=== PATIENT | male | born 1965 | race Asian ===

== ENCOUNTER 2016-12-21 05:01 | Inpatient (IN) | payer OTHER ==
[2016-12-04 13:12] VITALS: BMI 31.5
[~2016-12-21 05:01] MED LIST: BACITRACIN 15 GM TUBE TOPICAL OINTMENT TP ONE; BUPIVACAINE HCL/PF 0.5% (5MG/ML) 10 ML VIAL IJ ONE
[2016-12-21] MEDS ORDERED: CEFAZOLIN 2 GM in DEXTROSE 5%-WATER - 100 ML IVPB ONE (07:31)
--- NOTE | 2016-12-21 07:31 | HP ---
History & Physical Update - History History: No Change - Physical Physical: No Change - Assessment Assessment: No Change - Plan Plan: No Change (full H&P in chart from 12/16/2106)
[2016-12-21] MEDS ORDERED: PROPOFOL 20 ML ONE ×17 (08:02→12:58)
[2016-12-21] MEDS ORDERED: ROCURONIUM BROMIDE 50 MG/5 ML VIAL ONE (08:02)
[2016-12-21] MEDS ORDERED: MIDAZOLAM HCL 2 MG/2 ML SINGLE DOSE VIAL ONE ×2 (08:02)
[2016-12-21] MEDS ORDERED: SUCCINYLCHOLINE CHLORIDE 200 MG/10 ML VIAL ONE (08:02)
[2016-12-21] MEDS ORDERED: ceFAZolin SODIUM 1 GM VIAL IVPB ONE (08:19)
[2016-12-21] MEDS ORDERED: BACITRACIN 15 GM TUBE TOPICAL OINTMENT ONE (08:47)
[2016-12-21] MEDS ORDERED: BUPIVACAINE HCL/PF 0.5% (5MG/ML) 10 ML VIAL ONE (08:47)
[2016-12-21] MEDS ORDERED: BACITRACIN 50,000 UNITS VIAL TP ONE ×2 (09:03→11:50)
[2016-12-21] MEDS ORDERED: THROMBIN (BOVINE) 5,000 UNIT VIAL TP ONE ×2 (09:03→12:21)
[2016-12-21] MEDS ORDERED: ePHEDrine SULFATE 50 MG/1 ML AMPULE ONE (09:52)
--- NOTE | 2016-12-21 13:58 | OP ---
Operative Note - Note: Operative Date: 12/21/16 Pre-Operative Diagnosis: L3-4 DDD, stenosis, spondylolisthesis, instability; end -of -life SCS Operation: Revision of SCS generator ([employer]); Redo and expansion of B L5, L4, and new B L3 laminectomies, bone graft harvest, discectomy L3-4, take- down of L4-5 posterolateral fusion; removal of prior implants L4-5; PLIF L3-4, posterolateral fusion L3-4 and L4-5; revision of L L4 screw and new B L3 screws ; new B 60 mm rods; locking screws; fluoroscopy Findings: Dense epidural fibrosis; L3-4 instability and stenosis; sensitive B lumbar roots L3,4,5 Implants: Appoet Legacy system; 6.5x30 mm R L3 cortical screw and L L4 45 mm pedicel screw and new L L4 6.5 x40mm pedicle screw; 60mm rods x2; locking screws; B 12 x 26 mm Hanna interbody implants Surgeon: Porfirio Carvajla Auto Wash Buffer: Gloria Donald Anesthesiologist/DATA MANAGEMENT CONSULTANT: Kinsey Verdugo MD Specimens Removed: L3-4 synovial cyst and L3-4 disc Estimated Blood Loss (mls): 300 Drains & Tubes with Location: PATRICIA to blub
[2016-12-21] MEDS ORDERED: BISACODYL 10 MG SUPP.RECT RC PRN (14:03)
[2016-12-21] MEDS ORDERED: ONDANSETRON 4 MG/2 ML VIAL IVPB PRN (14:03)
[2016-12-21] MEDS ORDERED: D5-1/2NS+20 MEQ KCL - 1,000 ML IV SCH (14:15)
[2016-12-21] MEDS ORDERED: diazePAM 5 MG TABLET PO SCH (14:15)
[2016-12-21] MEDS ORDERED: HYDROmorphone *PCA* 10MG/50ML DISP.SYRIN PCA ONE (14:25)
[2016-12-21] MEDS: HYDROmorphone HCL CARPU-JECT 2 MG/1 ML DISP.SYRIN ONE ×4 (14:30→14:50)
[2016-12-21] MEDS ORDERED: PROMETHAZINE HCL 25 MG/1 ML VIAL IVPB PRN (14:31)
[2016-12-21] MEDS ORDERED: DEXAMETHASONE SOD PHOSPHATE 4 MG/1 ML VIAL IVPUSH PRN (14:31)
[2016-12-21] MEDS ORDERED: ONDANSETRON 4 MG/2 ML VIAL IVPUSH PRN (14:31)
--- NOTE | 2016-12-21 14:57 | PN ---
Progress Note (short form) - Note Progress Note: NEUROSURGERY In PACU AF, VSS Still drowsy PE: CV- RRR; Lungs- CTA; Abd- benign, Ext- No C/C/E Motor- moving B LE at least 4-/5; Sensation- intact LT Labs pending IRB COMPLIANCE COORDINATOR for pain Valium for muscle relaxation Findings d/w and father LSO brace when OOB
--- NOTE | 2016-12-21 15:20 | SURG ---
Surgery Manager Combination Note Manager Combination: Gloria Donald PA-C Date of Service: 12/21/16 Diagnosis: L3-4 DDD, stenosis, spondylolisthesis, instability; end-of -life SCS Procedure: Revision of SCS generator ([email or web address]); Redo and expansion of B L5, L4, and new B L3 laminectomies, bone graft harvest, discectomy L3-4, take-down of L4 -5 posterolateral fusion; removal of prior implants L4-5; PLIF L3-4, posterolateral fusion L3-4 and L4-5; revision of L L4 screw and new B L3 screws ; new B 60 mm rods; locking screws; fluoroscopy I was present for the entirety of the operative procedure. For further detail, please refer to operative report. Visit type - Case Type Case Type: Scheduled Admission - Emergency Emergency Visit: No - New patient This patient is new to me today: Yes Date on this admission: 12/21/16 - Critical Care Critical Care patient: No
[2016-12-21 15:53] LABS: MCH 29.6 pg (25.7-33.7); MCHC 34.3 g/dl (32.0-35.9); MEAN CELL VOLUME 86.3 fl (80-96); MEAN PLT VOLUME 8.4 fl (7.5-11.1); PLATELET COUNT 211 K/MM3 (134-434); RDW 13.4 % (11.9-15.9); WHITE BLOOD COUNT 8.3 K/mm3 (4.0-10.0)
[2016-12-21] MEDS: D5-1/2NS+20 MEQ KCL - 1,000 ML IV SCH ×2 (15:58→23:05)
[2016-12-21 16:22] LABS: ANION GAP 8 (8-16); CALCIUM 8.3 mg/dL (8.5-10.1); CO2 27 mmol/L (21-32); CREATININE 1.3 mg/dL (0.7-1.3); GLUCOSE,RANDOM 142 mg/dL (74-106)
[2016-12-21] MEDS: HYDROmorphone *PCA* 10MG/50ML DISP.SYRIN PCA SCH (17:02)
[2016-12-21] MEDS: LACTATED RINGERS SOLUTION 1,000 ML IV SCH (17:03)
[2016-12-21] MEDS: HYDROmorphone HCL CARPU-JECT 1 MG/1 ML DISP.SYRIN IVPUSH SCH (17:04)
[2016-12-21] MEDS ORDERED: CEFAZOLIN 1 GM/D5W 50 ML IVPB SCH (18:00)
[2016-12-21] MEDS ORDERED: ceFAZolin SODIUM 1 GM VIAL ONE (18:10)
[2016-12-21] MEDS ORDERED: DEXTROSE 5%-WATER - 50 ML IVPB ONE (18:10)
[2016-12-21] MEDS: CEFAZOLIN 1 GM in DEXTROSE 5%-WATER - 50 ML IVPB SCH (18:16)
[2016-12-21] MEDS ORDERED: NORTRIPTYLINE HCL 50 MG CAPSULE PO SCH (22:00)
[2016-12-21] MEDS: diazePAM 5 MG TABLET PO SCH (22:07)
[2016-12-21] MEDS: GABAPENTIN 300 MG CAPSULE (FP) PO SCH (22:07)
[2016-12-21] MEDS: DOCUSATE SODIUM 100 MG CAPSULE (FP) PO SCH (22:07)
[2016-12-21] MEDS: ATORVASTATIN CA 10 MG TABLET (FP) PO SCH (22:08)
[2016-12-21] MEDS ORDERED: PT OWN MED DRAWER 7, Y5N ONE (22:09)
[2016-12-21] MEDS ORDERED: NORTRIPTYLINE HCL 25 MG CAPSULE PO SCH ×2 (22:14→22:30)
[2016-12-22] MEDS ORDERED: ceFAZolin SODIUM 1 GM VIAL ONE ×3 (01:20→19:09)
[2016-12-22] MEDS ORDERED: DEXTROSE 5%-WATER - 50 ML IVPB ONE ×3 (01:20→19:09)
[2016-12-22] MEDS: CEFAZOLIN 1 GM in DEXTROSE 5%-WATER - 50 ML IVPB SCH ×2 (01:30→10:10)
[2016-12-22] MEDS: DOCUSATE SODIUM 100 MG CAPSULE (FP) PO SCH ×3 (05:12→21:09)
[2016-12-22] MEDS: diazePAM 5 MG TABLET PO SCH ×3 (05:12→21:08)
[2016-12-22] MEDS: GABAPENTIN 300 MG CAPSULE (FP) PO SCH ×3 (05:12→21:09)
--- NOTE | 2016-12-22 08:07 | PN ---
Progress Note (short form) - Note Progress Note: NEUROSURGERY POD #1 Incisional pain According to , pt is thrashing around in bed Tmax 100, , VSS Drain 95 cc Still drowsy PE: CV- RRR; Lungs- CTA; Abd- benign, Ext- No C/C/E Motor- moving B LE at least 4-/5; Sensation- intact LT Slight drainage on bottom of incision WBC 8.3, Hgb 11.9. Cr 1.3 PATTERN FILER for pain IVF hydration, PO hydration Valium for muscle relaxation Bedrest today Advised pt not to overtly exert himself as tissues are redo surgery are weaker and prone to reinjury Incentive spirometry Plan d/c gilbert and drain tomorrow
[2016-12-22] MEDS ORDERED: PT OWN MED DRAWER 7, Y5N ONE (09:53)
[2016-12-22] MEDS: FLUoxetine HCL 20 MG CAPSULE (FP) PO SCH (10:11)
[2016-12-22] MEDS: ATENOLOL 50 MG TABLET (FP) PO SCH (10:11)
[2016-12-22] MEDS ORDERED: HYDROmorphone *PCA* 10MG/50ML DISP.SYRIN PCA ONE (13:32)
--- NOTE | 2016-12-22 13:41 | PN ---
Progress Note (short form) - Note Progress Note: Anesthesia postop note 51 y/o M, s/p GA for revision of spinal cord stimulator, revision and extension of lumbar fusion, sourcing coordinator for postop pain management POD#1, vss, aaox3, pain well controlled on iv sourcing coordinator Will continue sourcing coordinator today. No anesthesia complications.
--- NOTE | 2016-12-22 14:19 | OP ---
DATE OF OPERATION: 12/21/2016 -) PREOPERATIVE DIAGNOSES: 1. Prior L4-5 fusion. 2. L3-4 spondylolisthesis with stenosis and instability. 3. End-of-life spinal cord stimulator generator. 4. Hypertension. POSTOPERATIVE DIAGNOSES: 1. Prior L4-5 fusion. 2. L3-4 spondylolisthesis with stenosis and instability. 3. End-of-life spinal cord stimulator generator. 4. Hypertension. ATTENDING SURGEON: Porfirio Carvajal MD LABOR MEDIATOR: ANUP Wadr ANESTHESIA: General endotracheal. ANESTHESIOLOGIST: Kinsey Verdugo MD ESTIMATED BLOOD LOSS: 300 mL PROCEDURE: 1. Replacement of spinal cord stimulator generator in left buttock. (96094) 2. Intra-operative programming first hour (44876-05) 2. Intraoperative fluoroscopy for localization, lead position verification, and pedicle screw placement (23267-05). 3. Exploration and expansion of prior laminectomies at L4 and L5 bilaterally and new laminectomies at L3 for decompression of thecal sac as well as bilateral L5, L4 , and L3 nerve roots (89591-26-94, 58975-12, and 36164-27). 4. Microsurgical dissection with the operating microscope and microsurgical techniques (78090). 5. Lysis of epidural adhesions. 6. Bilateral L3-4 diskectomy. 7. Bilateral posterior lumbar interbody fusion, L3-4 (52483). 8. [place] of autologous lamina and spinous process and facet bone for interbody and posterolateral fusion (68825). 9. Removal of pedicle screw system including bilateral locking and nonlocking screws, and old left L4 screws (54284). 10. New screw placement at bilateral L3 and new screws at left L4, as well as bilateral 60-mm rods and locking screws (89981-22). 11. Posterior lumbar interbody fusion, L3-4 (30140). 12. Posterolateral fusion, L3-4 and L4-5 (43462, 46108). FINDINGS: 1. Dense epidural fibrosis. 2. L3-4 instability. 3. Marked lateral recess stenosis, L3-4 with thecal sac and root impingement. 4. Extremely thinned-out dura under chronic compression. INDICATIONS: The patient is a 51-year-old male with prior history of L4-5 laminectomy and fusion. He had previously undergone lumbar fusion and with some recurrent symptoms. CT scan had demonstrated worsening stenosis at L3-4, spinal listhesis, and degenerative disk disease. He was also found to have a generator of spinal cord stimulator that no longer works. He is, therefore, scheduled for a spinal cord stimulator revision and extension of the fusion up to L3-4 with revision of fusion of L4-5 as well. Risks for the procedure include, but are not limited to, bleeding, infection, dural tear with CSF leak, neurological injury, increased thromboembolic risks, and other risks of general anesthesia. The patient understands the indication for the procedure. Procedure in detail, risks and benefits, and alternative treatment of his lumbar condition and wished to proceed. No guarantees were given for a favorable outcome. Intraoperative SSEP and EMG signals were monitored. PROCEDURE IN DETAIL: After the patient was taken to the operating room, he was placed in supine position. After general anesthesia was induced and appropriate monitoring lines were placed, a Romero catheter was inserted. The patient was then turned over in the prone position on the Shyam frame. All pressure points were checked and padded. O2 saturation of bilateral lower extremities was 100%. Lumbar region as well as left buttock and posterior thoracic region were cleaned with alcohol and prepped with Betadine. Fluoroscope was brought in for localization. The operative field was sterilely draped. The first incision opened was left buttock incision. The tip of the epidural paddle electrode was at about mid-T9 body. After the left buttock incision was opened, the generator box was skeletonized. It was removed and disconnected from the epidural electrode. The impedance was checked for all 16 contact points, and they were all less than 300-400 ohms. The new generator was then placed, with 2 new leads. The impedance was checked, and once again, were satisfactory. The torch wrench was used to secure the leads. After the left buttock pocket was enlarged slightly, and the generator was placed in the buttock pocket. It was irrigated with antibiotic irrigation prior to the implant being placed. The fascia was closed with 3-0 Vicryl suture, and the skin was closed with 4-0 Vicryl running in subcuticular suture. Attention was then turned to the prior incision in the lumbar spine. Prior to this, the fluoroscope showed unchanged position of the epidural paddle electrode at mid T9 on AP fluoroscopic imaging. The prior incision was opened, with approximately 1/2 inch cephalad extension. Subperiosteal dissection was carried out bilaterally with periosteal elevator and monopolar electrocautery. The bottom of the L2 lamina, bilateral L3 lamina, as well as the prior pedicle screw systems on L4 and L5 were skeletonized. Two self-retaining retractors were inserted. Dense paraspinal and epidural fibrosis was encountered. The nerve root was extensively sensitive to nearby cautery stimulation at this point. The facet joint of L2-3 was skeletonized and preserved as well as the L3-4 facet initially. The pedicle screw system was skeletonized with a combination of sharp and blunt dissection. At this point, bilateral L3 laminectomy was carried out after spinous process was removed with Leksell rongeur, a high-speed pneumatic drill, as well as Kerrison rongeur. The bilateral L3-4 facetectomy was carried out with high-speed pneumatic drill and Leksell rongeur. The bone graft and bone dust were saved to be used later on. Microsurgical dissection was carried out with microscope for illumination and magnification. Microsurgical techniques were utilized. The wound was intermittently irrigated with antibiotic and irrigation. Dense epidural and paraspinal fibrosis was noted at L4-5 > L3 levels, and meticulous dissection was carried out. The dura was extremely raw because of the epidural scar tissue. Lysis of the epidural adhesions was carried out bilaterally at L4 and L5 in addition to the new laminectomy level at L3. This was to decompress the thecal sac and the bilateral L3, L4, and L5 nerve roots. After decompression was completed, under gentle retraction of the left L4 nerve root, disk annulus was incised with No. 15 blade. Disk space was cleaned with serially larger disk space scraper up to 12 mm. A 13-mm distractor was placed on the left side. Attention was then turned to the right side epidural space where disk annulus was incised with a No. 15 blade, and the disk spaces were cleaned with serially larger disk space scraper from 8 to 12 mm. The disk material was removed. A 12 x 26 mm tangent bony prosthetic device was burred down slightly anteriorly and countersunk by about 3-4 mm. Interbody fusion was achieved with the interbody devices bilaterally with good endplate contact. Central portion of the disc space was packed with autologous bone graft and bone dust. The attention was then turned to the left side where the disk space was similarly prepared. The central portion of the disk space was packed with autologous morselized bone graft and bone dust for interbody fusion. Another 12 x 26 mm interbody implant was placed on the left side similarly. At this point, the fluoroscope was moved in after microscope was moved out of the way, and fluoroscope was brought into the lateral position. Entry point and pedicle screw at L3 were marked with high-speed pneumatic drill. In order to hold our trajectory of the prior pedicle screw system, a 30-mm cortical screw was placed on the right side, and a 45-mm pedicle screw was placed on the left side. This was done with lateral fluoroscopic imaging. At this point, the locking screws at L4 and L5 pedicles were removed, and the left-sided L4 pedicle screw was removed. It was deemed somewhat more lateral on preoperative CT scan. A more medial trajectory of the pedicle screw was made with about 10-degree medial angle and a 5.5 x 40 mm screw was used at left L4. The EMG threshold was 20 mA for bilateral L3 screw with 200 mA stimulation, and it was 19 milliamps threshold for the left L4 pedicle screw with 200 mA stimulation similarly. Next, 16-mm rods were then loaded on top of the screws and locked down with locking screws. Torque wrench and counter-torque wrench were used for final tightening. The screws at L3 and L4 were compressed prior to final tightening. Good position was shown on lateral and AP fluoroscopic imaging. At this point, the posterolateral surface of the spine was decorticated with high-speed pneumatic drill. This facilitated the rods' removal bilaterally at L4-5. Posterolateral fusion was taken down. Previously morselized bone graft and bone dust were placed in the posterolateral surfaces of the spine at L3-4 and L4-5 for the fusion at these 2 levels. Since the dura was very raw, it was decided to leave a thin layer of DuraSeal was injected after copious amount of antibiotic-containing irrigation was given. The dorsal lumbar musculature was then approximated with 0 Vicryl suture. A number 10 flat PATRICIA drain was laid in the epidural space and came out through a separate right sided stab incision. The dorsal lumbar fascia was closed with 0 Vicryl suture, and the subcutaneous fascia was closed with 3-0 Vicryl sutures. Skin was closed with 4-0 Vicryl running subcuticular suture. Steri-Strips and sterile glue dressing were applied. The patient tolerated the procedure well and was turned back to the supine position and extubated. The PATRICIA drain was connected to a suction bulb. All needle and lap counts were correct. SSEP and EMG signals remained stable throughout. The OR timeout procedure was followed. The patient received 1 dose of 2 g of Ancef prior to incision. The patient was moving upper and lower extremities, as he did preoperatively. Amberly [id number] MTDD
[2016-12-22] MEDS: D5-1/2NS+20 MEQ KCL - 1,000 ML IV SCH ×2 (14:39→23:24)
[2016-12-22] MEDS: HYDROmorphone *PCA* 10MG/50ML DISP.SYRIN PCA SCH (15:33)
[2016-12-22] MEDS: LACTATED RINGERS SOLUTION 1,000 ML IV SCH (15:34)
[2016-12-22] MEDS: ACETAMINOPHEN 325 MG TABLET (FP) PO PRN ×2 (17:30→23:22)
[2016-12-22] MEDS ORDERED: CEFAZOLIN 1 GM in DEXTROSE 5%-WATER - 50 ML IVPB ONE (18:30)
[2016-12-22] MEDS: HYDROmorphone HCL CARPU-JECT 1 MG/1 ML DISP.SYRIN IVPUSH SCH (18:51)
--- NOTE | 2016-12-22 19:39 | PN ---
Progress Note (short form) - Note Progress Note: NEUROSURGERY POD #1 Incisional pain According to , pt is thrashing around in bed Reported with T of 103, VSS, given tylenol Got jup earlier x2 when confused, RELIGIOUS ASSISTANT held Using a lot of RELIGIOUS ASSISTANT Drain 170 cc+ Fully awake and alert PE: CV- RRR; Lungs- CTA, decreased BS at bases; Abd- benign, Ext- No C/C/E Motor- moving B LE at least 4-/5; Sensation- intact LT Mild drainage near bottom of incision/drain site- dressing changed Nucynta IVF hydration, PO hydration Renewed Ancef for now given temp Valium for muscle relaxation Bedrest for now Advised pt not to overtly exert himself as tissues are weaker and prone to reinjury Encouarged incentive spirometry again Change pain meds to Nucynta and dilaudid PRN and family at bedside
[2016-12-22] MEDS ORDERED: HYDROmorphone HCL CARPU-JECT 1 MG/1 ML DISP.SYRIN IVPB PRN (19:40)
[2016-12-22] MEDS: ATORVASTATIN CA 10 MG TABLET (FP) PO SCH (21:09)
[2016-12-23] MEDS: TAPENTADOL HYDROCHLORIDE 50 MG TABLET PO SCH ×4 (00:08→17:50)
[2016-12-23] MEDS ORDERED: ceFAZolin SODIUM 1 GM VIAL ONE ×3 (00:29→17:45)
[2016-12-23] MEDS ORDERED: DEXTROSE 5%-WATER - 50 ML IVPB ONE ×3 (00:29→17:45)
[2016-12-23] MEDS: CEFAZOLIN 1 GM in DEXTROSE 5%-WATER - 50 ML IVPB SCH ×3 (01:08→17:51)
[2016-12-23] MEDS ORDERED: CEFAZOLIN 1 GM in DEXTROSE 5%-WATER - 50 ML IVPB SCH (02:00)
[2016-12-23] MEDS: DOCUSATE SODIUM 100 MG CAPSULE (FP) PO SCH ×3 (06:06→21:40)
[2016-12-23] MEDS: GABAPENTIN 300 MG CAPSULE (FP) PO SCH ×3 (06:06→21:40)
[2016-12-23] MEDS: diazePAM 5 MG TABLET PO SCH ×3 (06:06→23:09)
--- NOTE | 2016-12-23 08:16 | PN ---
Progress Note (short form) - Note Progress Note: NEUROSURGERY POD #2 Incisional pain controlled with with Nucynta Tolerating diet at bedside Tmax 101.5 now 99.7, VSS Drain output 140 cc+ (bulb changed) Awake and alert PE: CV- RRR; Lungs- BS better; Abd- benign, +BS; Ext- No C/C/E Motor- moving B LE 4+-5/5; Sensation- intact LT Dressing of incisions/drain site dry/clean IVF hydration, PO hydration Renewed Ancef given temp earlier and drain still in place Valium for muscle relaxation Bedrest for now; SCD's Encouraged LE/foot ROM exercises and incentive spirometry On Nucynta standing (hold for drowsiness) and dilaudid PRN Cont bowel regimen Hold drain removal till tomorrow Baseline medical eval, consult Dr Quarles
[2016-12-23] MEDS ORDERED: PT OWN MED DRAWER 7, Y5N ONE ×2 (10:19→21:43)
[2016-12-23] MEDS: FLUoxetine HCL 20 MG CAPSULE (FP) PO SCH (10:25)
[2016-12-23] MEDS: ATENOLOL 50 MG TABLET (FP) PO SCH (10:26)
--- NOTE | 2016-12-23 10:28 | CONSULT ---
Consult Consult Specialty:: medicine Referred by:: mayank perera Reason for Consultation:: baseline medical consultation - History of Present Illness Chief Complaint: s/p spine surgery, h/o HTN, high cholesterol. s/p fever x 1 postop History of Present Illness: 51 y/o M, h/o HTN high cholesterol, s/p previous back surgeries x3 and spinal cord stimulator, now s/p revision of spinal cord stimulator, revision and extension of lumbar fusion, on technical support director for postop pain management POD#2, had fever 103 last evening but afebrile today aox3, pain controlled on iv technical support director meds, chart, consult, labs, tests and events noted - History Source History Provided By: Patient, Medical Record Limitations to Obtaining History: No Limitations - Past Medical History Cardio/Vascular: Yes: HTN, Hyperlipdemia Musculoskeletal: Yes: Chronic low back pain, Other - Alcohol/Substance Use Hx Alcohol Use: No - Smoking History Smoking history: Current every day smoker Have you smoked in the past 12 months: Yes Aproximately how many cigarettes per day: 10 - Social History Usual Living Arrangement: With Child ADL: Independent History of Recent Travel: No Home Medications - Allergies Allergies/Adverse Reactions: Allergies Allergy/AdvReac Type Severity Reaction Status Date / Time No Known Drug Allergies Allergy Verified 12/04/16 13:16 - Home Medications Home Medications: Ambulatory Orders Fluoxetine HCl [Prozac] 20 mg PO DAILY #0 capsule 02/21/13 Lidocaine 5% Patch [Lidoderm -] 1 patch TP DAILY #0 patch 02/21/13 Atenolol [Tenormin -] 50 mg PO DAILY 12/04/16 CeleBREX - 400 mg PO DAILY 12/04/16 Gabapentin 300 mg PO HS 12/04/16 Gabapentin 600 mg PO DAILY 12/04/16 Garlic 1 tablet PO DAILY 12/04/16 Pamelor - 50 mg PO HS 12/04/16 Simvastatin [Zocor -] 20 mg PO DAILY 12/04/16 Tizanidine HCl 4 mg PO PRN PRN 12/04/16 Family Disease History - Family Disease History Family History: Unremarkable Review of Systems - Review of Systems Constitutional: reports: Fever. denies: Chills, Lethargy Eyes: denies: Blind Spots, Blurred Vision, Double Vision HENT: denies: Difficult Swallowing, Epistaxis Neck: denies: Pain on Movement, Stiffness, Tenderness Cardiovascular: denies: Chest Pain, Shortness of Breath Respiratory: denies: Cough, SOB Gastrointestinal: denies: Abdominal Pain, Constipation, Diarrhea, Vomiting Genitourinary: denies: Discharge, Dysuria, Flank Pain Musculoskeletal: reports: Back Pain. denies: Extremity Pain, Joint Swelling, Muscle Weakness Integumentary: denies: Eczema, Pruritis, Rash Neurological: denies: Change in LOC, Change in Speech, Confusion, Dizziness, Headache, Syncope Hematology/Lymphatic: denies: Easily Bruised, Excessive Bleeding Psychiatric: denies: Altered Sleep Pattern, Anxiety, Depression, Suicidal Physical Exam Vital Signs: Vital Signs Temperature 99.2 F 12/23/16 06:20 Pulse Rate 88 12/23/16 06:20 Respiratory Rate 20 12/23/16 06:20 Blood Pressure 134/84 12/23/16 06:20 O2 Sat by Pulse Oximetry (%) 97 12/22/16 21:00 Constitutional: Yes: No Distress, Calm Eyes: Yes: Conjunctiva Clear HENT: Yes: Atraumatic Neck: Yes: Supple Cardiovascular: Yes: Regular Rate and Rhythm Respiratory: Yes: CTA Bilaterally Gastrointestinal: Yes: Soft. No: Distention, Tenderness Renal/: No: Hematuria Musculoskeletal: No: Joint Stiffness, Joint Swelling Extremities: Yes: Other (SCDs to legs bilateral). No: Cold, Cool, Cyanosis Edema: No Integumentary: No: Pressure Ulcer, Rash, Venous Stasis Changes Neurological: Yes: WNL, Alert, Oriented ...Motor Strength: WNL Psychiatric: Yes: WNL, Alert, Oriented. No: Agitated, Suicidal Ideation Labs: CBC, BMP 12/21/16 15:00 12/21/16 15:00 Imaging - Results X-ray: Report Reviewed Other: Report Reviewed Assessment/Plan 51 y/o M, h/o HTN, high cholesterol, s/p 2 spine surgeries in the past and a spinal cord stimulator 10 years ago, now s/p revision of spinal cord stimulator , revision and extension of lumbar fusion, technical support director for postop pain management BP controlled pain control MUSEUM SPECIALIST fever w/u CXR, cultures sent IV ATB as ordered DVT PFX per neurosurgery OOB PT per NS falls pfx advised stop smoking stop etoh (drinks tequila sometimes and smoked until 1 week preop) f/u with PCP in 1 - 2 weeks after DC d/w pt and staff
--- NOTE | 2016-12-23 11:50 | PN ---
Progress Note (short form) - Note Progress Note: Anesthesia HUMAN RESOURCES OFFICER follow up, S/P lumbar interbody fusion, POD#2. Pat seen and examined. VSS, resting in bed. HUMAN RESOURCES OFFICER d/c'd by Dr. BRADSHAW. Pain controlled on PO analgetics. Signed off.
[2016-12-23] MEDS: D5-1/2NS+20 MEQ KCL - 1,000 ML IV SCH (14:20)
--- NOTE | 2016-12-23 16:01 | PN ---
Progress Note (short form) - Note Progress Note: NEUROSURGERY F/U POD #[address] Quarles's input Drain output 275 cc Romero out earlier Resting comfortably Tmax 99.2, VSS PE: CV- RRR; Lungs- BS better; Abd- benign, +BS; Ext- No C/C/E Motor- moving B LE 4+-5/5; Sensation- intact LT Dressing of incisions/drain site dry/clean IVF hydration, PO hydration Renewed Ancef given temp earlier and drain still in place Valium for muscle relaxation Bedrest for now; SCD's Encouraged LE/foot ROM exercises and incentive spirometry On Nucynta standing (hold for drowsiness) and dilaudid PRN D/C drain tomorrow AM
[2016-12-23 16:02] LABS: URINE APPEARANCE CLEAR; URINE BILIRUBIN NEGATIVE (NEGATIVE); URINE BLOOD 1+ (NEGATIVE); URINE COLOR YELLOW; URINE GLUCOSE (UA) 2+ (NEGATIVE); URINE KETONE NEGATIVE (NEGATIVE); URINE LEUK ESTERASE NEGATIVE (NEGATIVE); URINE NITRITE NEGATIVE (NEGATIVE); URINE UROBILINOGEN NEGATIVE mg/dL (0.2-1.0)
[2016-12-23 16:32] LABS: URINE PROTEIN 1+ (NEGATIVE)
[2016-12-23 18:38] LABS: URINE MUCUS RARE; URINE RBC 4 /hpf (0-3); URINE WBC 1 /hpf (3-5)
[2016-12-23] MEDS: ATORVASTATIN CA 10 MG TABLET (FP) PO SCH (21:40)
[2016-12-24] MEDS ORDERED: ceFAZolin SODIUM 1 GM VIAL ONE ×2 (01:34→09:24)
[2016-12-24] MEDS ORDERED: DEXTROSE 5%-WATER - 50 ML IVPB ONE ×2 (01:35→09:24)
[2016-12-24] MEDS: CEFAZOLIN 1 GM in DEXTROSE 5%-WATER - 50 ML IVPB SCH ×2 (01:43→09:29)
[2016-12-24] MEDS: D5-1/2NS+20 MEQ KCL - 1,000 ML IV SCH (03:46)
[2016-12-24] MEDS: diazePAM 5 MG TABLET PO SCH ×3 (05:23→21:10)
[2016-12-24] MEDS: DOCUSATE SODIUM 100 MG CAPSULE (FP) PO SCH ×3 (05:23→21:10)
[2016-12-24] MEDS: TAPENTADOL HYDROCHLORIDE 50 MG TABLET PO SCH ×4 (05:23→17:51)
[2016-12-24] MEDS: GABAPENTIN 300 MG CAPSULE (FP) PO SCH ×3 (05:24→21:10)
--- NOTE | 2016-12-24 06:44 | PN ---
Progress Note (short form) - Note Progress Note: NEUROSURGERY F/U POD #3 Some incisional pain Drain output 135 cc Resting comfortably Tmax 100.4, VSS PE: CV- RRR; Lungs- BS better; Abd- benign, +BS; Ext- No C/C/E Motor- moving B LE 4+-5/5; Sensation- intact LT Dressing of incisions/drain site dry/clean IVF hydration, PO hydration Renewed Ancef given temp and drain just removed Valium for muscle relaxation D/C drain Bedrest for now; SCD's Encouraged LE/foot ROM exercises and incentive spirometry On Nucynta standing (hold for drowsiness) and dilaudid PRN, working adequately Bowel regimen
[2016-12-24 07:49] LABS: BASOPHIL 0.3 % (0-2.0); MEAN CELL VOLUME 85.4 fl (80-96); MEAN PLT VOLUME 8.1 fl (7.5-11.1); NEUTROPHILS 60.5 % (42.8-82.8); PLATELET COUNT 179 K/MM3 (134-434); WHITE BLOOD COUNT 7.2 K/mm3 (4.0-10.0)
[2016-12-24 08:49] LABS: ALBUMIN 2.8 g/dl (3.4-5.0); ALK PHOS 49 U/L (45-117); ANION GAP 5 (8-16); BILIRUBIN,TOTAL 0.6 mg/dL (0.2-1.0); CALCIUM 8.4 mg/dL (8.5-10.1); CO2 30 mmol/L (21-32); CREATININE 0.8 mg/dL (0.7-1.3); GLUCOSE,RANDOM 113 mg/dL (74-106); SGOT/AST 27 U/L (15-37); SGPT/ALT 25 U/L (12-78)
--- NOTE | 2016-12-24 09:06 | PATH ---
Surgical Pathology Report Patient Name: JILL KLINE Med. Rec. #: [id number] /Age/Gender: 1965 (Age: 51) / M Account: [id number] Location: [facility] MED/SURG Taken: 12/21/2016 Received: 12/22/2016 Reported: 12/24/2016 Physicians: Porfirio Carvajal M.D. Specimen(s) Received A: SYNOVIAL CYST, L3-4 B: REMOVED BATTERY C: DISC, L3-4 D: REMOVED HARDWARE Clinical History L3-L4 spondylolisthesis, post laminectomy syndrome Final Diagnosis A. SOFT TISSUE, L3-4, EXCISION: FIBROTIC SYNOVIUM WITH AREA SUGGESTIVE OF SYNOVIAL CYST. B. LACER AND TIER, REMOVAL: BATTERY CONSISTENT WITH SPINAL CORD STIMULATOR BATTERY (GROSS ONLY). C. INTERVERTEBRAL DISC, L3-4, PARTIAL EXCISION: PORTIONS OF INTERVERTEBRAL DISC AND SMALL FRAGMENTS OF BONE. D. HARDWARE, REMOVAL: METALLIC RODS AND SCREWS CONSISTENT WITH ORTHOPEDIC HARDWARE (GROSS ONLY). Electronically Signed Yvan Bartlett M.D. Gross Description A. Received in formalin labeled "synovial cyst L3-4," are 2 alberto, irregular portions of soft tissue averaging 0.7 cm in greatest dimension, possibly consistent with cysts. The specimens are submitted in toto in one cassette. B. Received fresh labeled "removed battery," is a 5.5 x 4.5 x 1.0 cm loaiza metallic device, consistent with a battery. The specimen has the following inscription: "[employer] REF [id number]." No soft tissue is present. No sections are submitted, gross only. C. Received in formalin labeled "disc L3-4," is a 3.5 x 2.8 x 0.3 cm aggregate of alberto fragments of fibrocartilaginous tissue. A field sales representative portion is submitted in one cassette. D. Received fresh labeled "removed hardware," is a 5.8 cm in length loaiza metallic screw. Also received within the same container are 2 loaiza metallic rods averaging 3.5 cm in greatest dimension and 4 loaiza metallic smaller screws averaging 0.5 cm in length. No soft tissue is present. No sections are submitted, gross only. DL12/22/2016 saudi12/22/2016
[2016-12-24] MEDS ORDERED: PT OWN MED DRAWER 7, Y5N ONE (09:24)
[2016-12-24] MEDS: FLUoxetine HCL 20 MG CAPSULE (FP) PO SCH (09:29)
[2016-12-24] MEDS: ATENOLOL 50 MG TABLET (FP) PO SCH (09:29)
--- NOTE | 2016-12-24 15:10 | PN ---
Progress Note (short form) - Note Progress Note: NEUROSURGERY F/U POD #3 Some incisional pain Drain out Resting comfortably, was up earlier walking Able to void fine at bedside Tmax 100.4 now 98.2, VSS PE: CV- RRR; Lungs- BS better; Abd- benign, +BS; Ext- No C/C/E Motor- moving B LE 4+-5/5; Sensation- intact LT Dressing of incisions/drain site dry/clean exteriorly; interiorly with dollar size serosangrenous drainage on top and half dollar size serosangrenous drainage on bottom; nothing active - changed with RN WBC 7.2, Hgb 10.8; Cr 0.8 Blood culture negative to date; urine culture negative CXR- no gross infiltrate PO hydration Valium for muscle relaxation Change to po abx for now and observe Urged no straining Encouraged LE/foot ROM exercises and incentive spirometry On Nucynta standing (hold for drowsiness), working adequately Bowel regimen
--- NOTE | 2016-12-24 17:26 | PN ---
Progress Note, Physician Chief Complaint: in bed off BALLISTICS TESTER pump; pain controlled with current meds; low grade fever 100.3; all cx negative so far; TEDs and SCDs to legs; DCT pfx per NS had some constipation, is on colace; will order miralax also at bedside events and tests d/w pt and ; 4+RBC/UA, UCx negative so far (pt had Romero but removed now) - to f/u with PCP UA outpt, if +RBC will need further w/u with ; also will need CBC CMP lipids PSA outpt (with his PCP) - Current Medication List Current Medications: Active Medications Acetaminophen (Tylenol -) 650 mg PO Q6H PRN PRN Reason: FEVER Last Admin: 12/22/16 23:22 Dose: 650 mg Atenolol (Tenormin -) 50 mg PO DAILY [facility] Last Admin: 12/24/16 09:29 Dose: 50 mg Atorvastatin Calcium (Lipitor -) 10 mg PO HS [facility] Last Admin: 12/23/16 21:40 Dose: 10 mg Bisacodyl (Dulcolax Suppository -) 10 mg RC DAILY PRN PRN Reason: CONSTIPATION Cephalexin HCl (Keflex -) 500 mg PO Q6HPO [facility] Diazepam (Valium -) 10 mg PO TID [facility] Last Admin: 12/24/16 14:25 Dose: 10 mg Diphenhydramine HCl (Benadryl Injection -) 12.5 mg IVPUSH ONCE PRN PRN Reason: FOR ITCHING Docusate Sodium (Colace -) 100 mg PO TID [facility] Last Admin: 12/24/16 14:25 Dose: 100 mg Fluoxetine HCl (Prozac -) 20 mg PO DAILY [facility] Last Admin: 12/24/16 09:29 Dose: 20 mg Gabapentin (Neurontin -) 600 mg PO TID [facility] Last Admin: 12/24/16 14:25 Dose: 600 mg Ondansetron HCl (Zofran Injection) 4 mg IVPB Q6H PRN PRN Reason: NAUSEA AND/OR VOMITING Promethazine HCl (Phenergan Injection -) 12.5 mg IVPB Q6H PRN PRN Reason: NAUSEA AND/OR VOMITING Tapentadol (Nucynta -) 75 mg PO Q6HPO [facility] Last Admin: 12/24/16 11:51 Dose: 75 mg - Objective Vital Signs: Vital Signs Temperature 98.2 F 12/24/16 14:34 Pulse Rate 84 12/24/16 14:34 Respiratory Rate 18 12/24/16 14:34 Blood Pressure 130/72 12/24/16 14:34 O2 Sat by Pulse Oximetry (%) 98 12/24/16 09:00 Constitutional: Yes: No Distress, Calm Eyes: Yes: Conjunctiva Clear HENT: Yes: Atraumatic Neck: Yes: Supple Cardiovascular: Yes: Regular Rate and Rhythm Respiratory: Yes: CTA Bilaterally Gastrointestinal: Yes: Soft. No: Distention, Tenderness Genitourinary: No: CVA Tenderness - Left, CVA Tenderness - Right, Hematuria Musculoskeletal: No: Joint Stiffness, Joint Swelling Extremities: No: Cold, Cool, Cyanosis Edema: No Integumentary: No: Rash, Venous Stasis Changes Neurological: Yes: WNL, Alert, Oriented ...Motor Strength: WNL Psychiatric: Yes: WNL, Alert, Oriented. No: Agitated, Suicidal Ideation Labs: CBC, BMP 12/24/16 06:00 12/24/16 06:00 - ....Imaging Other: Report Reviewed Assessment/Plan 51 y/o M, h/o HTN, high cholesterol, s/p 2 spine surgeries in the past and a spinal cord stimulator 10 years ago, now s/p revision of spinal cord stimulator , revision and extension of lumbar fusion BP controlled pain control BALLISTICS TESTER fever w/u CXR, cultures sent po ATB as ordered DVT PFX per neurosurgery OOB PT per NS stools softeners falls pfx advised stop smoking stop etoh (drinks tequila sometimes and smoked until 1 week preop) f/u with PCP in 1 - 2 weeks after DC, see above d/w pt and , and staff
[2016-12-24] MEDS: CEPHALEXIN MONOHYDRATE 500 MG CAPSULE (UD) PO SCH (17:51)
[2016-12-24] MEDS: ACETAMINOPHEN 325 MG TABLET (FP) PO PRN (20:43)
[2016-12-24] MEDS: ATORVASTATIN CA 10 MG TABLET (FP) PO SCH (21:10)
[2016-12-25] MEDS: TAPENTADOL HYDROCHLORIDE 50 MG TABLET PO SCH ×5 (00:29→23:30)
[2016-12-25] MEDS: CEPHALEXIN MONOHYDRATE 500 MG CAPSULE (UD) PO SCH ×6 (00:29→23:30)
--- NOTE | 2016-12-25 05:12 | PN ---
Progress Note (short form) - Note Progress Note: NEUROSURGERY F/U POD #[address] Quarles's f/u and input Less incisional pain Drain out Walking with walker Able to void No BM yet Tmax 101.9 now 98.6, VSS PE: CV- RRR; Lungs- BS bilaterally; Abd- benign, +BS; Ext- No C/C/E Motor- moving B LE 4+-5/5; Sensation- intact LT Dressing of incisions/drain site dry/clean exteriorly; interiorly with half dollar size serosangrenous drainage on top only; nothing active - cleaned with betadine and changed Blood culture negative to date; urine culture negative CXR- no gross infiltrate WBC 7.2 yesterday PO hydration Valium for muscle relaxation Changed to po abx yesterday and observe wound and temp Urged no straining and no heavy lifting LSO brace when OOB Encouraged incentive spirometry SCD's when in bed; pt extremely apprehensive of needle sticks and has been ambulating, thus will hold Sq heparin On Nucynta standing (hold for drowsiness), pain controlled Add Mag citrate for BM
[2016-12-25] MEDS ORDERED: MAGNESIUM CITRATE 300 ML BOTTLE PO ONE ×2 (05:13→06:15)
[2016-12-25] MEDS: DOCUSATE SODIUM 100 MG CAPSULE (FP) PO SCH ×3 (05:56→21:23)
[2016-12-25] MEDS: GABAPENTIN 300 MG CAPSULE (FP) PO SCH ×3 (05:56→21:23)
[2016-12-25] MEDS: diazePAM 5 MG TABLET PO SCH ×3 (05:56→21:22)
[2016-12-25] MEDS: ACETAMINOPHEN 325 MG TABLET (FP) PO PRN ×2 (06:05→21:40)
[2016-12-25] MEDS ORDERED: DEXAMETHASONE 4 MG TABLET (FP) PO ONE (07:15)
[2016-12-25] MEDS: ATENOLOL 50 MG TABLET (FP) PO SCH (09:50)
--- NOTE | 2016-12-25 10:25 | PN ---
Progress Note, Physician Chief Complaint: in bed less back pain, got OOB earlier with help fever x 1 no BM yet, on stools softeners; no N/V/ abdominal pain - Current Medication List Current Medications: Active Medications Acetaminophen (Tylenol -) 650 mg PO Q6H PRN PRN Reason: FEVER Last Admin: 12/25/16 06:05 Dose: 650 mg Atenolol (Tenormin -) 50 mg PO DAILY [facility] Last Admin: 12/25/16 09:50 Dose: 50 mg Atorvastatin Calcium (Lipitor -) 10 mg PO HS [facility] Last Admin: 12/24/16 21:10 Dose: 10 mg Bisacodyl (Dulcolax Suppository -) 10 mg RC DAILY PRN PRN Reason: CONSTIPATION Last Admin: 12/25/16 09:50 Dose: 10 mg Cephalexin HCl (Keflex -) 500 mg PO Q6HPO [facility] Last Admin: 12/25/16 05:56 Dose: 500 mg Diazepam (Valium -) 10 mg PO TID [facility] Last Admin: 12/25/16 05:56 Dose: 10 mg Diphenhydramine HCl (Benadryl Injection -) 12.5 mg IVPUSH ONCE PRN PRN Reason: FOR ITCHING Docusate Sodium (Colace -) 100 mg PO TID [facility] Last Admin: 12/25/16 05:56 Dose: 100 mg Fluoxetine HCl (Prozac -) 20 mg PO DAILY [facility] Last Admin: 12/24/16 09:29 Dose: 20 mg Gabapentin (Neurontin -) 600 mg PO TID [facility] Last Admin: 12/25/16 05:56 Dose: 600 mg Ondansetron HCl (Zofran Injection) 4 mg IVPB Q6H PRN PRN Reason: NAUSEA AND/OR VOMITING Polyethylene Glycol (Miralax (For Daily Use) -) 17 gm PO DAILY [facility] Promethazine HCl (Phenergan Injection -) 12.5 mg IVPB Q6H PRN PRN Reason: NAUSEA AND/OR VOMITING Tapentadol (Nucynta -) 75 mg PO Q6HPO [facility] Last Admin: 12/25/16 05:56 Dose: 75 mg - Objective Vital Signs: Vital Signs Temperature 101.5 F H 12/25/16 06:10 Pulse Rate 72 12/25/16 02:58 Respiratory Rate 20 12/25/16 02:58 Blood Pressure 140/75 12/25/16 02:58 O2 Sat by Pulse Oximetry (%) 98 12/24/16 21:00 Constitutional: Yes: No Distress, Calm Eyes: Yes: Conjunctiva Clear HENT: Yes: Atraumatic Neck: Yes: Supple Cardiovascular: Yes: Regular Rate and Rhythm Respiratory: Yes: CTA Bilaterally Gastrointestinal: Yes: Soft. No: Distention, Tenderness Genitourinary: No: CVA Tenderness - Left, CVA Tenderness - Right Musculoskeletal: No: Joint Stiffness, Joint Swelling Extremities: No: Cold, Cool Edema: No Peripheral Pulses WNL: Yes Integumentary: No: Rash, Venous Stasis Changes Neurological: Yes: WNL, Alert, Oriented ...Motor Strength: WNL Psychiatric: Yes: WNL, Alert, Oriented. No: Agitated, Suicidal Ideation Labs: CBC, BMP 12/24/16 06:00 12/24/16 06:00 - ....Imaging Other: Report Reviewed Assessment/Plan 51 y/o M, h/o HTN, high cholesterol, s/p 2 spine surgeries in the past and a spinal cord stimulator 10 years ago, now s/p revision of spinal cord stimulator , revision and extension of lumbar fusion BP controlled pain control fever w/u cultures sent po ATB as ordered DVT PFX per neurosurgery OOB PT per NS stools softeners falls pfx advised stop smoking stop etoh f/u with PCP in 1 - 2 weeks after DC, see above d/w pt & staff
[2016-12-25] MEDS: FLUoxetine HCL 20 MG CAPSULE (FP) PO SCH (12:43)
[2016-12-25] MEDS: POLYETHYLENE GLYCOL 3350 119 GM BTL PO SCH (15:20)
[2016-12-25] MEDS: ATORVASTATIN CA 10 MG TABLET (FP) PO SCH (21:23)
[2016-12-26] MEDS: GABAPENTIN 300 MG CAPSULE (FP) PO SCH ×3 (06:10→22:25)
[2016-12-26] MEDS: CEPHALEXIN MONOHYDRATE 500 MG CAPSULE (UD) PO SCH ×3 (06:11→17:53)
[2016-12-26] MEDS: TAPENTADOL HYDROCHLORIDE 50 MG TABLET PO SCH ×4 (06:11→22:28)
[2016-12-26] MEDS: DOCUSATE SODIUM 100 MG CAPSULE (FP) PO SCH ×3 (06:11→22:25)
[2016-12-26] MEDS: diazePAM 5 MG TABLET PO SCH ×2 (06:11→22:25)
[2016-12-26] MEDS: ATENOLOL 50 MG TABLET (FP) PO SCH (09:54)
[2016-12-26] MEDS: POLYETHYLENE GLYCOL 3350 119 GM BTL PO SCH (09:55)
[2016-12-26] MEDS ORDERED: PT OWN MED DRAWER 7, Y5N ONE (09:56)
[2016-12-26] MEDS: FLUoxetine HCL 20 MG CAPSULE (FP) PO SCH (09:57)
--- NOTE | 2016-12-26 10:53 | PN ---
Progress Note (short form) - Note Progress Note: NEUROSURGERY F/U POD #[address] Quarles's f/u and input Took a shower yesterday and ambulated with brace/walker Leg pain/cramps, but had am really ambulated for initial 3-4 days, thus expected + BM yesterday afternoon Tmax 100.5, now 98.6, VSS Dressing changed per RN after shower yesterday afternoon, no drainage Blood culture negative to date; urine culture negative Decrease Valium to BID Urged no straining and no heavy lifting LSO brace when OOB Encouraged incentive spirometry SCD's when in bed; pt extremely apprehensive of needle sticks and has been ambulating, thus will hold Sq heparin Increased Nucynta to 100 mg QID; hold for drowsiness Observe temp and wound
[2016-12-26] MEDS ORDERED: TAPENTADOL HYDROCHLORIDE 50 MG TABLET PO SCH (11:00)
--- NOTE | 2016-12-26 11:12 | PN ---
Progress Note, Physician Chief Complaint: feeling better less pain got OOB, took shower; had BM family at bedside afebrile today - Current Medication List Current Medications: Active Medications Acetaminophen (Tylenol -) 650 mg PO Q6H PRN PRN Reason: FEVER Last Admin: 12/25/16 21:40 Dose: 650 mg Atenolol (Tenormin -) 50 mg PO DAILY [facility] Last Admin: 12/26/16 09:54 Dose: 50 mg Atorvastatin Calcium (Lipitor -) 10 mg PO HS [facility] Last Admin: 12/25/16 21:23 Dose: 10 mg Bisacodyl (Dulcolax Suppository -) 10 mg RC DAILY PRN PRN Reason: CONSTIPATION Last Admin: 12/25/16 09:50 Dose: 10 mg Cephalexin HCl (Keflex -) 500 mg PO Q6HPO [facility] Last Admin: 12/26/16 06:11 Dose: 500 mg Diazepam (Valium -) 10 mg PO BID [facility] Diphenhydramine HCl (Benadryl Injection -) 12.5 mg IVPUSH ONCE PRN PRN Reason: FOR ITCHING Docusate Sodium (Colace -) 100 mg PO TID [facility] Last Admin: 12/26/16 06:11 Dose: 100 mg Fluoxetine HCl (Prozac -) 20 mg PO DAILY [facility] Last Admin: 12/26/16 09:57 Dose: 20 mg Gabapentin (Neurontin -) 600 mg PO TID [facility] Last Admin: 12/26/16 06:10 Dose: 600 mg Ondansetron HCl (Zofran Injection) 4 mg IVPB Q6H PRN PRN Reason: NAUSEA AND/OR VOMITING Polyethylene Glycol (Miralax (For Daily Use) -) 17 gm PO DAILY [facility] Last Admin: 12/26/16 09:55 Dose: 17 gm Promethazine HCl (Phenergan Injection -) 12.5 mg IVPB Q6H PRN PRN Reason: NAUSEA AND/OR VOMITING Tapentadol (Nucynta -) 100 mg PO Q6H [facility] Stop: 12/26/16 11:04 - Objective Vital Signs: Vital Signs Temperature 97.8 F 12/26/16 09:07 Pulse Rate 78 12/26/16 09:07 Respiratory Rate 16 12/26/16 09:07 Blood Pressure 129/81 12/26/16 09:07 O2 Sat by Pulse Oximetry (%) 96 12/25/16 21:00 Constitutional: Yes: No Distress, Calm Eyes: Yes: Conjunctiva Clear HENT: Yes: Atraumatic Neck: Yes: Supple Cardiovascular: Yes: Regular Rate and Rhythm Respiratory: Yes: CTA Bilaterally Gastrointestinal: Yes: Soft. No: Distention Genitourinary: No: CVA Tenderness - Left, CVA Tenderness - Right Musculoskeletal: No: Joint Stiffness, Joint Swelling Extremities: No: Cold, Cool Edema: No Peripheral Pulses WNL: Yes Integumentary: No: Rash, Venous Stasis Changes Neurological: Yes: WNL, Alert, Oriented ...Motor Strength: WNL Psychiatric: Yes: WNL, Alert, Oriented. No: Agitated Labs: CBC, BMP 12/24/16 06:00 12/24/16 06:00 - ....Imaging Other: Report Reviewed Assessment/Plan 51 y/o M, h/o HTN, high cholesterol, s/p 2 spine surgeries in the past and a spinal cord stimulator 10 years ago, now s/p revision of spinal cord stimulator , revision and extension of lumbar fusion BP controlled pain control fever w/u cultures sent all negative po ATB as ordered DVT PFX per neurosurgery OOB PT per NS stools softeners falls pfx advised stop smoking stop etoh f/u with PCP in 1 - 2 weeks after DC, see above d/w pt & staff, d/w at bedside
[2016-12-26] MEDS: ACETAMINOPHEN 325 MG TABLET (FP) PO PRN (20:07)
[2016-12-26] MEDS: ATORVASTATIN CA 10 MG TABLET (FP) PO SCH (22:25)
[2016-12-26] MEDS: HYDROCORTISONE 1% TOPICAL CREAM 30 GM TUBE TP SCH (22:34)
[2016-12-27] MEDS: CEPHALEXIN MONOHYDRATE 500 MG CAPSULE (UD) PO SCH ×4 (00:32→17:33)
[2016-12-27] MEDS: TAPENTADOL HYDROCHLORIDE 50 MG TABLET PO SCH ×4 (06:10→17:33)
[2016-12-27] MEDS: DOCUSATE SODIUM 100 MG CAPSULE (FP) PO SCH ×3 (06:11→22:01)
[2016-12-27] MEDS: GABAPENTIN 300 MG CAPSULE (FP) PO SCH ×3 (06:12→22:02)
[2016-12-27] MEDS: POLYETHYLENE GLYCOL 3350 119 GM BTL PO SCH (09:51)
[2016-12-27] MEDS: ATENOLOL 50 MG TABLET (FP) PO SCH (09:51)
[2016-12-27] MEDS: diazePAM 5 MG TABLET PO SCH ×2 (09:51→22:03)
[2016-12-27] MEDS: FLUoxetine HCL 20 MG CAPSULE (FP) PO SCH (09:52)
[2016-12-27] MEDS: HYDROCORTISONE 1% TOPICAL CREAM 30 GM TUBE TP SCH ×2 (09:53→22:01)
--- NOTE | 2016-12-27 12:01 | PN ---
Progress Note (short form) - Note Progress Note: NEUROSURGERY F/U POD #[address] Quarles's f/u Ambulated with brace/walker Some leg pain/cramps Tmax 98.5, VSS Blood culture negative x 72 hrs; urine culture negative Decrease Valium to 5 mg HS Urged no straining and no heavy lifting LSO brace when OOB Reduce Nucynta back to 75 mg QID; hold for drowsiness Observe temp and wound If afebrile and wound clean, plan d/c home tomorrow
--- NOTE | 2016-12-27 14:44 | PN ---
Progress Note, Physician Chief Complaint: in bed still with some back pain; also legs pains, knees, ankles, feet especially when walking or moving pain meds per NS had BM BGM / GLU borderline high; ADA diet d/w pt - Current Medication List Current Medications: Active Medications Acetaminophen (Tylenol -) 650 mg PO Q6H PRN PRN Reason: FEVER Last Admin: 12/26/16 20:07 Dose: 650 mg Atenolol (Tenormin -) 50 mg PO DAILY [facility] Last Admin: 12/27/16 09:51 Dose: 50 mg Atorvastatin Calcium (Lipitor -) 10 mg PO HS [facility] Last Admin: 12/26/16 22:25 Dose: 10 mg Bisacodyl (Dulcolax Suppository -) 10 mg RC DAILY PRN PRN Reason: CONSTIPATION Last Admin: 12/25/16 09:50 Dose: 10 mg Cephalexin HCl (Keflex -) 500 mg PO Q6HPO [facility] Last Admin: 12/27/16 13:39 Dose: 500 mg Diazepam (Valium -) 5 mg PO [facility] Diphenhydramine HCl (Benadryl Injection -) 12.5 mg IVPUSH ONCE PRN PRN Reason: FOR ITCHING Docusate Sodium (Colace -) 100 mg PO TID [facility] Last Admin: 12/27/16 13:39 Dose: 100 mg Fluoxetine HCl (Prozac -) 20 mg PO DAILY [facility] Last Admin: 12/27/16 09:52 Dose: 20 mg Gabapentin (Neurontin -) 600 mg PO TID [facility] Last Admin: 12/27/16 13:39 Dose: 600 mg Hydrocortisone (Hytone 1% Cream -) 1 applic TP BID [facility] Last Admin: 12/27/16 09:53 Dose: 1 applic Ondansetron HCl (Zofran Injection) 4 mg IVPB Q6H PRN PRN Reason: NAUSEA AND/OR VOMITING Polyethylene Glycol (Miralax (For Daily Use) -) 17 gm PO DAILY [facility] Last Admin: 12/27/16 09:51 Dose: Not Given Promethazine HCl (Phenergan Injection -) 12.5 mg IVPB Q6H PRN PRN Reason: NAUSEA AND/OR VOMITING Tapentadol (Nucynta -) 75 mg PO Q6HPO [facility] Last Admin: 12/27/16 13:39 Dose: 75 mg - Objective Vital Signs: Vital Signs Temperature 97.5 F L 12/27/16 10:00 Pulse Rate 76 12/27/16 10:00 Respiratory Rate 16 12/27/16 10:00 Blood Pressure 132/89 12/27/16 10:00 O2 Sat by Pulse Oximetry (%) 98 12/27/16 08:07 Constitutional: Yes: No Distress, Calm Eyes: Yes: Conjunctiva Clear HENT: Yes: Atraumatic Neck: Yes: Supple Cardiovascular: Yes: Regular Rate and Rhythm Respiratory: Yes: CTA Bilaterally Gastrointestinal: Yes: Soft. No: Distention, Tenderness Musculoskeletal: No: Joint Stiffness, Joint Swelling Extremities: No: Cold, Cool, Cyanosis Edema: No Peripheral Pulses WNL: Yes Integumentary: No: Rash, Venous Stasis Changes Neurological: Yes: WNL, Alert, Oriented ...Motor Strength: WNL Psychiatric: Yes: WNL, Alert, Oriented. No: Agitated, Suicidal Ideation Labs: CBC, BMP 12/24/16 06:00 12/24/16 06:00 - ....Imaging Other: Report Reviewed
[2016-12-27] MEDS ORDERED: PT OWN MED DRAWER 7, Y5N ONE (19:33)
[2016-12-27] MEDS: ATORVASTATIN CA 10 MG TABLET (FP) PO SCH (22:02)
[2016-12-28] MEDS: CEPHALEXIN MONOHYDRATE 500 MG CAPSULE (UD) PO SCH ×4 (00:12→17:36)
[2016-12-28] MEDS: TAPENTADOL HYDROCHLORIDE 50 MG TABLET PO SCH ×4 (00:13→17:36)
[2016-12-28] MEDS: DOCUSATE SODIUM 100 MG CAPSULE (FP) PO SCH ×3 (06:28→21:09)
[2016-12-28] MEDS: GABAPENTIN 300 MG CAPSULE (FP) PO SCH ×3 (06:29→21:09)
[2016-12-28] MEDS ORDERED: PT OWN MED DRAWER 7, Y5N ONE ×2 (10:17→10:18)
[2016-12-28] MEDS: ATENOLOL 50 MG TABLET (FP) PO SCH (10:19)
[2016-12-28] MEDS: POLYETHYLENE GLYCOL 3350 119 GM BTL PO SCH ×2 (10:19→10:21)
[2016-12-28] MEDS: FLUoxetine HCL 20 MG CAPSULE (FP) PO SCH (10:19)
[2016-12-28] MEDS: HYDROCORTISONE 1% TOPICAL CREAM 30 GM TUBE TP SCH ×2 (10:21→21:10)
--- NOTE | 2016-12-28 11:24 | PN ---
Progress Note, Physician Chief Complaint: still with some back pain and legs pains, no swelling/ no edema, no rash L foot has small redness on top b/o SCDs - SCDs repositioned and d/w staff to apply topical bacitracin and steroid cream bid; no pain no fluctuence - Current Medication List Current Medications: Active Medications Acetaminophen (Tylenol -) 650 mg PO Q6H PRN PRN Reason: FEVER Last Admin: 12/26/16 20:07 Dose: 650 mg Atenolol (Tenormin -) 50 mg PO DAILY [facility] Last Admin: 12/28/16 10:19 Dose: 50 mg Atorvastatin Calcium (Lipitor -) 10 mg PO [facility] Last Admin: 12/27/16 22:02 Dose: 10 mg Bisacodyl (Dulcolax Suppository -) 10 mg RC DAILY PRN PRN Reason: CONSTIPATION Last Admin: 12/25/16 09:50 Dose: 10 mg Cephalexin HCl (Keflex -) 500 mg PO Q6HPO [facility] Last Admin: 12/28/16 06:29 Dose: 500 mg Diazepam (Valium -) 5 mg PO [facility] Last Admin: 12/27/16 22:03 Dose: 5 mg Diphenhydramine HCl (Benadryl Injection -) 12.5 mg IVPUSH ONCE PRN PRN Reason: FOR ITCHING Docusate Sodium (Colace -) 100 mg PO TID [facility] Last Admin: 12/28/16 06:28 Dose: 100 mg Fluoxetine HCl (Prozac -) 20 mg PO DAILY [facility] Last Admin: 12/28/16 10:19 Dose: 20 mg Gabapentin (Neurontin -) 600 mg PO TID [facility] Last Admin: 12/28/16 06:29 Dose: 600 mg Hydrocortisone (Hytone 1% Cream -) 1 applic TP BID [facility] Last Admin: 12/28/16 10:21 Dose: 1 applic Ondansetron HCl (Zofran Injection) 4 mg IVPB Q6H PRN PRN Reason: NAUSEA AND/OR VOMITING Polyethylene Glycol (Miralax (For Daily Use) -) 17 gm PO DAILY [facility] Last Admin: 12/28/16 10:21 Dose: Not Given Promethazine HCl (Phenergan Injection -) 12.5 mg IVPB Q6H PRN PRN Reason: NAUSEA AND/OR VOMITING Tapentadol (Nucynta -) 75 mg PO Q6HPO [facility] Last Admin: 12/28/16 06:30 Dose: 75 mg - Objective Vital Signs: Vital Signs Temperature 98.6 F 12/28/16 08:32 Pulse Rate 86 12/28/16 08:32 Respiratory Rate 20 12/28/16 08:32 Blood Pressure 151/92 12/28/16 08:32 O2 Sat by Pulse Oximetry (%) 96 12/27/16 21:00 Constitutional: Yes: No Distress, Calm Eyes: Yes: Conjunctiva Clear HENT: Yes: Atraumatic Neck: Yes: Supple Cardiovascular: Yes: Regular Rate and Rhythm Respiratory: Yes: CTA Bilaterally Gastrointestinal: Yes: Soft. No: Distention, Tenderness Genitourinary: No: CVA Tenderness - Left, CVA Tenderness - Right, Hematuria Musculoskeletal: No: Joint Stiffness, Joint Swelling Extremities: No: Cold, Cool, Cyanosis Edema: No Integumentary: No: Rash, Venous Stasis Changes Neurological: Yes: WNL, Alert, Oriented ...Motor Strength: WNL Psychiatric: Yes: WNL, Alert, Oriented. No: Agitated, Suicidal Ideation Labs: CBC, BMP 12/24/16 06:00 12/24/16 06:00 - ....Imaging Other: Report Reviewed Assessment/Plan 51 y/o M, h/o HTN, high cholesterol, s/p 2 spine surgeries in the past and a spinal cord stimulator 10 years ago, now s/p revision of spinal cord stimulator , revision and extension of lumbar fusion BP controlled; BGM control / ADA diet back and legs pain; pain control; check legs US r/o DVT (doubt) fever w/u cultures sent all negative po ATB as ordered DVT PFX per neurosurgery OOB PT per NS stools softeners falls pfx advised stop smoking stop etoh f/u with PCP in 1 - 2 weeks after DC, see above d/w pt & staff
--- NOTE | 2016-12-28 13:35 | PN ---
Progress Note (short form) - Note Progress Note: NEUROSURGERY F/U POD #[address] Quarles's f/u Ambulated with brace/walker Some leg pain/cramps along the agudelo/ankle Tmax 99.7, now 98.6, VSS BM X2 PE; AF, VSS CV-RRR; Lungs- CTA B; Abd- benign; Ext- no sign of DVT Motor-4+-5 B LE (IP?quad/TA/gastroc); Sensation- intact LT Dressing- C/D/I no drainage Blood culture negative x 72 hrs; urine culture negative Decreased Valium to 5 mg HS LSO brace when OOB Reduced Nucynta back to 75 mg QID; hold for drowsiness Observe temp and wound VNS- d/w case management Cont Keflex Lidoderm prn Charge and start SCS programs
[2016-12-28] MEDS: LIDOCAINE 5% TOPICAL PATCH TP SCH (16:06)
[2016-12-28] MEDS: ATORVASTATIN CA 10 MG TABLET (FP) PO SCH (21:09)
[2016-12-28] MEDS: diazePAM 5 MG TABLET PO SCH (21:09)
[2016-12-28] MEDS: LIDOCAINE PATCH REMOVAL MC SCH (21:10)
[2016-12-28] MEDS: ACETAMINOPHEN 325 MG TABLET (FP) PO PRN (21:11)
[2016-12-28] MEDS ORDERED: oxyCODONE HCL 5 MG TABLET PO ONE ×2 (22:00→22:30)
[2016-12-29] MEDS: CEPHALEXIN MONOHYDRATE 500 MG CAPSULE (UD) PO SCH ×4 (00:10→17:05)
[2016-12-29] MEDS: TAPENTADOL HYDROCHLORIDE 50 MG TABLET PO SCH ×4 (01:11→17:04)
[2016-12-29] MEDS: DOCUSATE SODIUM 100 MG CAPSULE (FP) PO SCH ×3 (05:41→21:50)
[2016-12-29] MEDS: GABAPENTIN 300 MG CAPSULE (FP) PO SCH ×3 (05:41→21:48)
[2016-12-29 07:57] LABS: BASOPHIL 0.5 % (0-2.0); EOSINOPHIL 2.7 % (0-4.5); MCH 28.8 pg (25.7-33.7); MCHC 34.1 g/dl (32.0-35.9); MEAN CELL VOLUME 84.5 fl (80-96); MEAN PLT VOLUME 7.7 fl (7.5-11.1); NEUTROPHILS 58.9 % (42.8-82.8); PLATELET COUNT 278 K/MM3 (134-434); RDW 13.1 % (11.9-15.9); WHITE BLOOD COUNT 6.7 K/mm3 (4.0-10.0)
--- NOTE | 2016-12-29 07:59 | PN ---
Progress Note (short form) - Note Progress Note: NEUROSURGERY F/U POD #[address] Quarles's continued input Some occ phlegm R ant agudelo pain Tmax 100.5, now 98.6, VSS PE: CV-RRR; Lungs- CTA B; Abd- benign; Ext- no sign of DVT Motor-4+-5 B LE (IP/quad/TA/gastroc); Sensation- intact LT Dressing- C/D/I no drainage New CBC/CMET pending LE doppler negative for DVT Blood culture negative x 72 hrs; urine culture negative CXR ordered/LS spine x-rays ordered LSO brace when OOB On Nucynta 75 mg QID; hold for drowsiness Observe temp and wound VNS- d/w case management Lidoderm prn
[2016-12-29 08:35] LABS: ANION GAP 8 (8-16); CALCIUM 8.8 mg/dL (8.5-10.1); CO2 30 mmol/L (21-32); GLUCOSE,RANDOM 113 mg/dL (74-106)
[2016-12-29 08:37] LABS: CREATININE 0.8 mg/dL (0.7-1.3)
[2016-12-29] MEDS ORDERED: PT OWN MED DRAWER 7, Y5N ONE (10:08)
[2016-12-29] MEDS: LIDOCAINE 5% TOPICAL PATCH TP SCH (10:11)
[2016-12-29] MEDS: HYDROCORTISONE 1% TOPICAL CREAM 30 GM TUBE TP SCH ×2 (10:13→21:50)
[2016-12-29] MEDS: ATENOLOL 50 MG TABLET (FP) PO SCH (10:14)
[2016-12-29] MEDS: POLYETHYLENE GLYCOL 3350 119 GM BTL PO SCH (10:14)
[2016-12-29] MEDS: FLUoxetine HCL 20 MG CAPSULE (FP) PO SCH (10:14)
--- NOTE | 2016-12-29 13:48 | PN ---
Progress Note, Physician Chief Complaint: still with legs and back pain with moving DVT negative consults appreciated L top foot rash better - Current Medication List Current Medications: Active Medications Acetaminophen (Tylenol -) 650 mg PO Q6H PRN PRN Reason: FEVER Last Admin: 12/28/16 21:11 Dose: 650 mg Atenolol (Tenormin -) 50 mg PO DAILY [facility] Last Admin: 12/29/16 10:14 Dose: 50 mg Atorvastatin Calcium (Lipitor -) 10 mg PO HS [facility] Last Admin: 12/28/16 21:09 Dose: 10 mg Bisacodyl (Dulcolax Suppository -) 10 mg RC DAILY PRN PRN Reason: CONSTIPATION Last Admin: 12/25/16 09:50 Dose: 10 mg Cephalexin HCl (Keflex -) 500 mg PO Q6HPO [facility] Last Admin: 12/29/16 11:32 Dose: 500 mg Diazepam (Valium -) 5 mg PO HS [facility] Last Admin: 12/28/16 21:09 Dose: 5 mg Diphenhydramine HCl (Benadryl Injection -) 12.5 mg IVPUSH ONCE PRN PRN Reason: FOR ITCHING Docusate Sodium (Colace -) 100 mg PO TID [facility] Last Admin: 12/29/16 13:36 Dose: Not Given Fluoxetine HCl (Prozac -) 20 mg PO DAILY [facility] Last Admin: 12/29/16 10:14 Dose: 20 mg Gabapentin (Neurontin -) 600 mg PO TID [facility] Last Admin: 12/29/16 13:39 Dose: 600 mg Hydrocortisone (Hytone 1% Cream -) 1 applic TP BID [facility] Last Admin: 12/29/16 10:13 Dose: 1 applic Lidocaine (Lidoderm Patch -) 1 patch TP DAILY [facility] Last Admin: 12/29/16 10:11 Dose: 1 patch Miscellaneous (Lidoderm Patch Removal) 1 each MC DAILY@2200 [facility] Last Admin: 12/28/16 21:10 Dose: 1 each Ondansetron HCl (Zofran Injection) 4 mg IVPB Q6H PRN PRN Reason: NAUSEA AND/OR VOMITING Polyethylene Glycol (Miralax (For Daily Use) -) 17 gm PO DAILY [facility] Last Admin: 12/29/16 10:14 Dose: Not Given Promethazine HCl (Phenergan Injection -) 12.5 mg IVPB Q6H PRN PRN Reason: NAUSEA AND/OR VOMITING Tapentadol (Nucynta -) 75 mg PO Q6HPO [facility] Last Admin: 12/29/16 11:32 Dose: 75 mg - Objective Vital Signs: Vital Signs Temperature 98.0 F 12/29/16 08:41 Pulse Rate 74 12/29/16 08:41 Respiratory Rate 20 12/29/16 08:41 Blood Pressure 117/74 12/29/16 08:41 O2 Sat by Pulse Oximetry (%) 100 12/29/16 09:00 Constitutional: Yes: No Distress, Calm Eyes: Yes: Conjunctiva Clear HENT: Yes: Atraumatic Neck: Yes: Supple Cardiovascular: Yes: Regular Rate and Rhythm Respiratory: Yes: CTA Bilaterally Gastrointestinal: Yes: Soft. No: Distention, Tenderness Genitourinary: No: Hematuria Musculoskeletal: No: Joint Stiffness, Joint Swelling Extremities: No: Calf Tenderness, Cold, Cool Edema: No Peripheral Pulses WNL: Yes Integumentary: No: Rash, Venous Stasis Changes Neurological: Yes: WNL, Alert, Oriented ...Motor Strength: WNL Psychiatric: Yes: WNL, Alert, Oriented. No: Agitated, Suicidal Ideation Labs: CBC, BMP 12/29/16 06:30 12/29/16 06:30 - ....Imaging Other: Report Reviewed Assessment/Plan 51 y/o M, h/o HTN, high cholesterol, s/p 2 spine surgeries in the past and a spinal cord stimulator 10 years ago, now s/p revision of spinal cord stimulator , revision and extension of lumbar fusion BP controlled; BGM control / ADA diet back and legs pain; pain control; legs US no DVT; will check knees, ankles and feet xrays fever w/u cultures sent all negative po ATB as ordered DVT PFX per neurosurgery OOB PT per NS stools softeners falls pfx advised stop smoking stop etoh f/u with PCP in 1 - 2 weeks after DC, see above d/w pt & staff
[2016-12-29] MEDS ORDERED: oxyCODONE HCL 5 MG TABLET PO ONE ×2 (21:15)
[2016-12-29] MEDS: ATORVASTATIN CA 10 MG TABLET (FP) PO SCH (21:48)
[2016-12-29] MEDS: diazePAM 5 MG TABLET PO SCH (21:48)
[2016-12-29] MEDS: LIDOCAINE PATCH REMOVAL MC SCH (21:51)
[2016-12-30] MEDS: TAPENTADOL HYDROCHLORIDE 50 MG TABLET PO SCH ×4 (00:45→18:52)
[2016-12-30] MEDS: CEPHALEXIN MONOHYDRATE 500 MG CAPSULE (UD) PO SCH ×2 (00:46→06:10)
[2016-12-30] MEDS: GABAPENTIN 300 MG CAPSULE (FP) PO SCH ×3 (06:10→21:42)
[2016-12-30] MEDS: DOCUSATE SODIUM 100 MG CAPSULE (FP) PO SCH ×3 (06:10→21:43)
--- NOTE | 2016-12-30 08:47 | PN ---
Progress Note (short form) - Note Progress Note: NEUROSURGERY F/U POD #9 R ant agudelo pain and L ankle pain Incisional pain tolerable Tmax 100.3, now 98.6, VSS PE: CV-RRR; Lungs- CTA B; Abd- benign; Ext- no sign of DVT; L ankle jl from ?teds Motor-4+-5 B LE (IP/quad/TA/gastroc); Sensation- intact LT Dressing- C/D/I no drainage LE doppler negative for DVT Blood culture negative x 5 days; urine culture negative WBC 6.7; Hgb 10.1; HgA1C 6.3 CXR- no infiltrate LS spine- satisfactory alignment L3-5 with implants in good position LSO brace when OOB On Nucynta 75 mg QID; hold for drowsiness Decadron 4mg x1 for likely inflammatory leg pain Begin SCS programming D/C Keflex and observe D/C teds Warm compresses for legs
[2016-12-30] MEDS: FLUoxetine HCL 20 MG CAPSULE (FP) PO SCH (09:52)
[2016-12-30] MEDS: ATENOLOL 50 MG TABLET (FP) PO SCH (09:52)
[2016-12-30] MEDS: LIDOCAINE 5% TOPICAL PATCH TP SCH ×2 (09:52→16:33)
[2016-12-30] MEDS: HYDROCORTISONE 1% TOPICAL CREAM 30 GM TUBE TP SCH ×2 (09:54→21:43)
[2016-12-30] MEDS: POLYETHYLENE GLYCOL 3350 119 GM BTL PO SCH (09:58)
[2016-12-30] MEDS ORDERED: DEXAMETHASONE 4 MG TABLET (FP) PO ONE (10:30)
--- NOTE | 2016-12-30 13:10 | PN ---
Progress Note, Physician Chief Complaint: knees and ankles feet xrays d/w pt - slight metatarsal thickening R foot, r/o occult fracture; pt does not have point tenderness; able to walk; I advised him to f/u with his PCP after he goes home, to have foot MRI r/o occult fracture; pt said he will; less pain in his back and legs but felt cold and shivering but he is afebrile, check blood cx. d/w pt and his father at bedside; his father said he has diabetes; dw pt about ADA diet, weight loss - Current Medication List Current Medications: Active Medications Acetaminophen (Tylenol -) 650 mg PO Q6H PRN PRN Reason: FEVER Last Admin: 12/28/16 21:11 Dose: 650 mg Atenolol (Tenormin -) 50 mg PO DAILY [facility] Last Admin: 12/30/16 09:52 Dose: 50 mg Atorvastatin Calcium (Lipitor -) 10 mg PO HS [facility] Last Admin: 12/29/16 21:48 Dose: 10 mg Bisacodyl (Dulcolax Suppository -) 10 mg RC DAILY PRN PRN Reason: CONSTIPATION Last Admin: 12/25/16 09:50 Dose: 10 mg Diazepam (Valium -) 5 mg PO HS [facility] Last Admin: 12/29/16 21:48 Dose: 5 mg Diphenhydramine HCl (Benadryl Injection -) 12.5 mg IVPUSH ONCE PRN PRN Reason: FOR ITCHING Docusate Sodium (Colace -) 100 mg PO TID [facility] Last Admin: 12/30/16 06:10 Dose: Not Given Fluoxetine HCl (Prozac -) 20 mg PO DAILY [facility] Last Admin: 12/30/16 09:52 Dose: 20 mg Gabapentin (Neurontin -) 600 mg PO TID [facility] Last Admin: 12/30/16 06:10 Dose: 600 mg Hydrocortisone (Hytone 1% Cream -) 1 applic TP BID [facility] Last Admin: 12/30/16 09:54 Dose: 1 applic Lidocaine (Lidoderm Patch -) 1 patch TP DAILY [facility] Last Admin: 12/30/16 09:52 Dose: 1 patch Miscellaneous (Lidoderm Patch Removal) 1 each MC DAILY@2200 [facility] Last Admin: 12/29/16 21:51 Dose: 1 each Ondansetron HCl (Zofran Injection) 4 mg IVPB Q6H PRN PRN Reason: NAUSEA AND/OR VOMITING Polyethylene Glycol (Miralax (For Daily Use) -) 17 gm PO DAILY [facility] Last Admin: 12/30/16 09:58 Dose: 17 gm Promethazine HCl (Phenergan Injection -) 12.5 mg IVPB Q6H PRN PRN Reason: NAUSEA AND/OR VOMITING Tapentadol (Nucynta -) 75 mg PO Q6HPO [facility] Last Admin: 12/30/16 12:37 Dose: 75 mg - Objective Vital Signs: Vital Signs Temperature 98.5 F 12/30/16 10:00 Pulse Rate 80 12/30/16 10:00 Respiratory Rate 20 12/30/16 10:00 Blood Pressure 131/75 12/30/16 10:00 O2 Sat by Pulse Oximetry (%) 98 12/30/16 08:46 Constitutional: Yes: No Distress, Calm Eyes: Yes: Conjunctiva Clear HENT: Yes: Atraumatic Neck: Yes: Supple Cardiovascular: Yes: Regular Rate and Rhythm Respiratory: Yes: CTA Bilaterally Gastrointestinal: Yes: Soft. No: Distention, Tenderness Genitourinary: No: CVA Tenderness - Left, CVA Tenderness - Right Musculoskeletal: No: Joint Stiffness, Joint Swelling Extremities: No: Cold, Cool Edema: No Peripheral Pulses WNL: Yes Integumentary: No: Rash, Venous Stasis Changes Neurological: Yes: WNL, Alert, Oriented ...Motor Strength: WNL Psychiatric: Yes: WNL, Alert, Oriented. No: Agitated Labs: CBC, BMP 12/29/16 06:30 12/29/16 06:30 - ....Imaging Other: Report Reviewed Assessment/Plan 51 y/o M, h/o HTN, high cholesterol, s/p 2 spine surgeries in the past and a spinal cord stimulator 10 years ago, now s/p revision of spinal cord stimulator , revision and extension of lumbar fusion BP controlled; BGM control / ADA diet back and legs pain; pain control; legs US no DVT; d/w pt knees, ankles and feet xrays; advised f.u with his PCP outpt, might need foot MRI - pt to d/w PCP f/u cultures - so far all negative DVT PFX per neurosurgery OOB PT per NS stools softeners [place] pfx f/u with PCP in 1 - 2 weeks after DC d/w pt & staff
[2016-12-30] MEDS: LIDOCAINE PATCH REMOVAL MC SCH (21:43)
[2016-12-30] MEDS: ATORVASTATIN CA 10 MG TABLET (FP) PO SCH (21:43)
[2016-12-30] MEDS: diazePAM 5 MG TABLET PO SCH (21:43)
[2016-12-31] MEDS: TAPENTADOL HYDROCHLORIDE 50 MG TABLET PO SCH ×3 (00:14→14:17)
[2016-12-31 06:29] VITALS: PULSE 72
[2016-12-31] MEDS: DOCUSATE SODIUM 100 MG CAPSULE (FP) PO SCH ×2 (06:34→14:22)
[2016-12-31] MEDS: GABAPENTIN 300 MG CAPSULE (FP) PO SCH ×2 (06:34→14:22)
[2016-12-31 08:16] VITALS: BP 112/72; TEMP 97.6
--- NOTE | 2016-12-31 08:47 | PN ---
Progress Note (short form) - Note Progress Note: NEUROSURGERY F/U POD #10 R ant agudelo pain Incisional pain tolerable SCS working Tmax 99.1, now 97.6, VSS PE: CV-RRR; Lungs- CTA B; Abd- benign; Ext- no sign of DVT Motor-4+-5 B LE (IP/quad/TA/gastroc); Sensation- intact LT Dressing- C/D/I no drainage LE doppler negative for DVT Blood culture negative x 5 days; urine culture negative WBC 6.7 CXR- no infiltrate LSO brace when OOB On Nucynta 75 mg QID; hold for drowsiness Began SCS programming Warm compresses for legs Advised f/u with Dr Quarles for hyperglycemia Discharge home Weight reduction advised Instructions given F/u plan reviewed
[2016-12-31] MEDS: HYDROCORTISONE 1% TOPICAL CREAM 30 GM TUBE TP SCH (10:48)
[2016-12-31] MEDS: LIDOCAINE 5% TOPICAL PATCH TP SCH (10:49)
[2016-12-31] MEDS: FLUoxetine HCL 20 MG CAPSULE (FP) PO SCH (10:49)
[2016-12-31] MEDS: POLYETHYLENE GLYCOL 3350 119 GM BTL PO SCH (10:49)
[2016-12-31] MEDS: ATENOLOL 50 MG TABLET (FP) PO SCH (10:49)
--- NOTE | 2016-12-31 18:32 | PN ---
Progress Note, Physician Chief Complaint: feeling better; blood cx negative afebrile less pain walks well with walker - does not qualify for inpt PT rehab; ok to DC home family will pick him up - Objective Vital Signs: Vital Signs Temperature 97.6 F 12/31/16 08:16 Pulse Rate 72 12/31/16 08:16 Respiratory Rate 18 12/31/16 08:16 Blood Pressure 112/72 12/31/16 08:16 O2 Sat by Pulse Oximetry (%) 98 12/31/16 09:00 Constitutional: Yes: No Distress, Calm Eyes: Yes: Conjunctiva Clear HENT: Yes: Atraumatic Neck: Yes: Supple Cardiovascular: Yes: Regular Rate and Rhythm Respiratory: Yes: CTA Bilaterally Gastrointestinal: Yes: Soft. No: Distention, Tenderness Genitourinary: No: CVA Tenderness - Left, CVA Tenderness - Right Musculoskeletal: No: Joint Stiffness, Joint Swelling Extremities: No: Cold, Cool, Cyanosis Edema: No Peripheral Pulses WNL: Yes Integumentary: No: Rash, Venous Stasis Changes Neurological: Yes: WNL, Alert, Oriented ...Motor Strength: WNL Psychiatric: Yes: WNL, Alert, Oriented. No: Agitated, Suicidal Ideation Labs: CBC, BMP 12/29/16 06:30 12/29/16 06:30 - ....Imaging Other: Report Reviewed Assessment/Plan 51 y/o M, h/o HTN, high cholesterol, s/p 2 spine surgeries in the past and a spinal cord stimulator 10 years ago, now s/p revision of spinal cord stimulator , revision and extension of lumbar fusion BP controlled; BGM control / ADA diet back and legs pains improved f/u cultures - so far all negative ADA diet, weight loss; f/u labs / BGM outpt with PCP DVT PFX per neurosurgery OOB PT per NS stools softeners [place] pfx DC home with outpt PT rehab and VNS f/u with PCP in 1 - 2 weeks after DC d/w pt all the above, d/w staff
== END 2016-12-31 14:51 | disposition home health service (06) | DRG 23 ==
LOC: JSAMEDAYSX 05:01 → EDSTATUS 08:00 → J8W 16:51
PROVIDERS: ADMIT Neurological Surgery; ATTEND Neurological Surgery
PROC: 4B00XVZ Measurement of Central Nervous Stimulator, External Approach (ICD-10-PCS; 2016-12-21)
PROC: 01NB0ZZ Release Lumbar Nerve, Open Approach (ICD-10-PCS; 2016-12-21)
PROC: 0SB20ZZ Excision of Lumbar Vertebral Disc, Open Approach (ICD-10-PCS; 2016-12-21)
PROC: 0SG1071 Fusion of 2 or more Lumbar Vertebral Joints with Autologous Tissue Substitute, Posterior Approach, Posterior Column, Open Approach (ICD-10-PCS; 2016-12-21)
PROC: 0SP00AZ Removal of Interbody Fusion Device from Lumbar Vertebral Joint, Open Approach (ICD-10-PCS; 2016-12-21)
PROC: 00NT0ZZ Release Spinal Meninges, Open Approach (ICD-10-PCS; 2016-12-21)
PROC: 0JWT0MZ Revision of Stimulator Generator in Trunk Subcutaneous Tissue and Fascia, Open Approach (ICD-10-PCS; principal; 2016-12-21 08:00)
DX: Z46.2 Encounter for fitting and adjustment of other devices related to nervous system and special senses (principal); M43.16 Spondylolisthesis, lumbar region; M48.06 Spinal stenosis, lumbar region; M53.2X6 Spinal instabilities, lumbar region; I10 Essential (primary) hypertension; G96.12 Meningeal adhesions (cerebral) (spinal); G95.29 Other cord compression; E66.8 Other obesity; Z68.31 Body mass index [BMI] 31.0-31.9, adult
CPT/HCPCS: 36415; 71010-TC; 71020-TC; 72100-TC; 73560-TC-LT; 73560-TC-RT; 73610-TC-LT; 73610-TC-RT; 73630-TC-LT; 73630-TC-RT; 76000-TC; 80048; 80053; 81003; 81015; 83036; 85025; 85027; 86850; 86900; 86901; 87040; 87086; 88300-TC; 88304-TC; 93970-TC; 94760; 97116-GP; 97162-GP